=== PATIENT | female | born 1950 | race Caucasian/White ===

== ENCOUNTER 2020-07-13 08:31 | Outpatient (REF) | payer MEDICARE, SELFPAY ==
[2020-07-13 09:09] LABS: MANUAL DIFF FLAG NO
[2020-07-13 09:18] LABS: Basophils Percent Auto 0.7 % (0-2); Eosinophils Absolute Auto 0.2 X10*3/uL (0.0-0.4); Eosinophils Percent Auto 2.8 % (0-4); Hematocrit 39.8 % (37-47); Hemoglobin 13.3 g/dl (12.0-16.0); Imm Gran Abs Auto 0.02 X10*3/uL (0.00-0.03); Imm Gran Pct Auto 0.3 % (0.0-0.4); Lymphocytes Absolute Auto 2.1 X10*3/uL (1.2-4.9); Mean Corpuscular HGB Conc 33.4 g/dl (31.0-35.0); Mean Corpuscular Hemoglobin 32.3 pg (27.0-33.0); Mean Corpuscular Volume 96.6 fL (80-98); Mean Platelet Volume 9.3 fL (9.4-12.3); Monocytes Absolute Auto 0.5 X10*3/uL (0.1-1.2); Monocytes Percent Auto 8.8 % (2-11); Neutrophils Absolute Auto 3.2 X10*3/uL (2.0-8.3); Neutrophils Percent Auto 52.4 % (45-73); Platelet Count 255 X10*3/uL (160-400); Red Blood Count 4.12 X10*6/uL (4.20-5.50); Red Cell Distribution Width 11.5 % (11.0-16.0); White Blood Count 6.1 X10*3/uL (4.8-10.8)
[2020-07-13 10:06] LABS: Alanine Aminotransferase 45 U/L (0-31); Alkaline Phosphatase 97 U/L (39-117); Anion Gap 14 (12-20); Aspartate Amino Transferase 35 U/L (5-31); Bilirubin Total 0.5 mg/dL (0.0-1.0); Blood Urea Nitrogen 10 mg/dL (9-16); Carbon Dioxide 28 mmol/L (22-29); Chloride 99 mmol/L (96-108); Cholesterol 189 mg/dL; Estimated Glomerular Filt Rate > 60; Glucose Fasting 104 mg/dL (60-99); HDL Cholesterol 58 mg/dL; LDL Cholesterol Calculated 97 mg/dl; Potassium 4.7 mmol/l (3.3-5.1); Sodium 136 mmol/L (135-145); Total Protein 7.3 g/dL (6.5-8.0); Triglycerides 172 mg/dL
[2020-07-13 10:28] LABS: Vitamin D 25-OH Total 51.8 ng/mL (>30)
== END 2020-07-13 08:32 | disposition home or self-care (01) ==
LOC: HO.10HDL 08:31
PROVIDERS: PCP Internal Medicine; Visit Provider Internal Medicine
DX: I10 Essential (primary) hypertension (principal); E78.00 Pure hypercholesterolemia, unspecified
CPT/HCPCS: 36415; 80053; 80061; 82306; 85025

== ENCOUNTER 2020-07-17 10:25 | Outpatient (REF) | payer MEDICARE, SELFPAY ==
--- NOTE | 2020-07-17 10:29 | MM_ITS ---
EXAMINATION: MM SCREENING DIGITAL BREAST TOMOSYNTHESIS, BILATERAL CLINICAL INFORMATION: Screening. Asymptomatic. The lifetime risk of breast cancer based on the Tyrer-Cuzick Model is 4%. COMPARISON: Mammography: 07/12/2019, 07/06/2018 TECHNIQUE: Digital breast tomosynthesis is performed in both the craniocaudal and mediolateral oblique views along with computer-aided detection (CAD). Synthesized 2D images are generated from the tomosynthesis. FINDINGS: There are scattered areas of fibroglandular density (ACR BI-RADS breast composition Category b). Breast tissue composition borders on predominantly fatty. There are dermal lesions again seen overlying the bilateral breasts. There is no interval breast parenchymal mass or architectural abnormality or abnormal calcifications. The axilla are unremarkable. No significant changes. MM/MM tomosynthesis screening BI IMPRESSION: No mammographic evidence of malignancy. ASSESSMENT: BI-RADS 2: Benign RECOMMENDATION: Routine annual mammography screening. This patient's information was entered into a reminder system with a target due date for their next mammogram.
== END 2020-07-17 10:26 | disposition home or self-care (01) ==
LOC: HO.MAMMO 10:25
PROVIDERS: PCP Internal Medicine; Visit Provider Internal Medicine
DX: Z12.31 Encounter for screening mammogram for malignant neoplasm of breast (principal)
CPT/HCPCS: 77063; 77067

== ENCOUNTER 2021-07-25 13:56 | Outpatient (REF) | payer MEDICARE, SELFPAY ==
--- NOTE | ~2021-07-25 | MM_ITS ---
EXAMINATION: MM SCREENING DIGITAL BREAST TOMOSYNTHESIS, BILATERAL CLINICAL INFORMATION: Screening. Asymptomatic. The lifetime risk of breast cancer based on the Tyrer-Cuzick Model is 4%. COMPARISON: Mammography: 08/17/2020, 07/12/2019, 07/06/2018 TECHNIQUE: Digital breast tomosynthesis is performed in both the craniocaudal and mediolateral oblique views along with computer-aided detection (CAD). Synthesized 2D images are generated from the tomosynthesis. Additional right CC view is provided. FINDINGS: There are scattered areas of fibroglandular density (ACR BI-RADS breast composition Category b). There are no significant masses, abnormal calcifications, or other abnormalities. There are scattered bilateral dermal lesions overlying the breasts. The axilla are unremarkable. No significant changes. MM/MM tomosynthesis screening BI IMPRESSION: No mammographic evidence of malignancy. ASSESSMENT: BI-RADS 2: Benign RECOMMENDATION: Routine annual mammography screening. This patient's information was entered into a reminder system with a target due date for their next mammogram.
== END 2021-07-25 13:57 | disposition home or self-care (01) ==
LOC: HO.MAMMO 13:56
PROVIDERS: PCP Internal Medicine; Visit Provider Internal Medicine
DX: Z12.31 Encounter for screening mammogram for malignant neoplasm of breast (principal)
CPT/HCPCS: 77063; 77067

== ENCOUNTER 2022-07-31 10:29 | Outpatient (REF) | payer MEDICARE, SELFPAY ==
--- NOTE | ~2022-07-31 | MM_ITS ---
EXAMINATION: MM SCREENING DIGITAL BREAST TOMOSYNTHESIS, BILATERAL CLINICAL INFORMATION: Screening. Asymptomatic. The lifetime risk of breast cancer based on the Tyrer-Cuzick Model is 4%. COMPARISON: Mammography: 07/25/2021, 07/17/2020, 07/12/2019 TECHNIQUE: Digital breast tomosynthesis is performed in both the craniocaudal and mediolateral oblique views along with computer-aided detection (CAD). Synthesized 2D images are generated from the tomosynthesis. FINDINGS: There are scattered areas of fibroglandular density (ACR BI-RADS breast composition Category b). Breast tissue composition borders on predominantly fatty. There are no significant masses, abnormal calcifications, or other abnormalities. There is no developing density or architectural abnormality. Scattered bilateral dermal lesions are again seen overlying both breasts. The axilla are unremarkable. No significant changes. MM/MM tomosynthesis screening BI IMPRESSION: No mammographic evidence of malignancy. ASSESSMENT: BI-RADS 2: Benign RECOMMENDATION: Routine annual mammography screening. This patient's information was entered into a reminder system with a target due date for their next mammogram.
== END 2022-07-31 10:30 | disposition home or self-care (01) ==
LOC: HO.MAMMO 10:29
PROVIDERS: PCP Internal Medicine; Visit Provider Internal Medicine
DX: Z12.31 Encounter for screening mammogram for malignant neoplasm of breast (principal)
CPT/HCPCS: 77063; 77067

== ENCOUNTER 2023-08-02 08:11 | Outpatient (REF) | payer MEDICARE, SELFPAY | END 2023-08-02 08:12 | disposition home or self-care (01) | LOC: HO.MAMMO 08:11 | PROVIDERS: PCP Internal Medicine; Visit Provider Internal Medicine | DX: Z12.31 Encounter for screening mammogram for malignant neoplasm of breast (principal) | CPT/HCPCS: 77063; 77067 ==

== ENCOUNTER → 2023-08-02 08:30 | Outpatient (BNV) | payer MEDICARE, SELFPAY | PROVIDERS: PCP Internal Medicine; Visit Provider Radiology Diagnostic Radiology | DX: Z12.31 Encounter for screening mammogram for malignant neoplasm of breast (principal) | CPT/HCPCS: 77063; 77067 ==

== ENCOUNTER 2023-10-02 08:31 | Outpatient (REF) | payer MEDICARE, SELFPAY ==
--- NOTE | ~2023-10-02 | MM_ITS ---
EXAMINATION: BONE DENSITOMETRY CLINICAL INDICATION: Other specified disorders of bone density and structure, multiple sites. COMPARISON: Previous BD dated 09/23/2019 and baseline BD dated 07/31/2014. TECHNIQUE: Using a [employer] DXA System (software version: 13.1) manufactured by [employer], dual-energy x-ray absorptiometry was performed of the lumbar spine and left hip. The images are of good technical quality. Summary results are attached. FINDINGS: AP SPINE L1-L4 (excluding L2): The data of L1-L4 has been changed to exclude the L2 vertebral body, because degenerative sclerosis at this level may cause overestimation of lumbar spine density. Current: BMD 0.875 g/cm2, Z-score -0.9, T-score -2.5, osteoporosis, 11.4% decrease from previous, 12.6% decrease from baseline (<5% change is not significant). Prior: BMD 0.988 g/cm2. Baseline: BMD 1.001 g/cm2. LEFT FEMUR, NECK: Current: BMD 0.658 g/cm2, Z-score -1.0, T-score -2.7, osteoporosis. Prior: BMD 0.786 g/cm2. Baseline: BMD 0.810 g/cm2. LEFT FEMUR, TOTAL: Current: BMD 0.618 g/cm2, Z-score -1.6, T-score -3.1, osteoporosis, 19.5% decrease from previous, 21.3% decrease from baseline (<5% change is not significant). Prior: BMD 0.768 g/cm2. Baseline: BMD 0.785 g/cm2. IDENTIFIED RISK FACTORS: Low calcium intake. Secondary osteoporosis (early menopause). Hysterectomy. Bilateral oophorectomy. Thiazide. HISTORY OF FRACTURE: None listed. MEDICATIONS: Calcium supplement and/or multivitamin. MM/XR DEXA axial skeleton IMPRESSION: 1. DIAGNOSIS: Osteoporosis based on the lowest T-score value of -3.1 in the total femur applying World Health Organization criteria. 2. 10-YEAR FRACTURE RISK PREDICTION, FRAX: According to the guidelines, FRAX calculation should only be performed on patients in the osteopenia bone density category.?Therefore, FRAX was not performed on this patient.? 3. Treatment Recommendations: NOF guidelines recommend consideration for treatment in postmenopausal women and men age 50 and older presenting with the following: -A hip or vertebral (clinical or morphometric) fracture. -T-score less than or equal to -2.5 at the femoral neck or spine after appropriate evaluation to exclude secondary causes. -Low bone mass at the hip or spine and a 10-year fracture probability by FRAX of greater than or equal to 3% for hip fracture or greater than or equal to 20% for major osteoporotic fracture based on the [place] adapted WHO algorithm. 4. Other Recommendations: All treatment decisions require clinical judgment and consideration of individual patient factors, including patient preferences, comorbidities, previous drug use, risk factors not captured in the FRAX model (e.g. frailty, falls, vitamin D deficiency, increased bone turnover, interval significant decline in bone density) and possible under or overestimation of fracture risk by FRAX. Additional medical evaluation for secondary cause of low bone mineral density may be appropriate. FUTURE SCAN RECOMMENDATION: People with diagnosed cases of osteoporosis or at high risk for fracture should have regular bone mineral density tests. For patients eligible for Medicare, routine testing is allowed once every 2 years. The testing frequency can be increased to one year for patients who have rapidly progressing disease, those who are receiving or discontinuing medical therapy to restore bone mass, or have additional risk factors.
== END 2023-10-02 08:32 | disposition home or self-care (01) ==
LOC: HO.MAMMO 08:31
PROVIDERS: Visit Provider Internal Medicine
DX: Z13.820 Encounter for screening for osteoporosis (principal); M85.89 Other specified disorders of bone density and structure, multiple sites; Z78.0 Asymptomatic menopausal state
CPT/HCPCS: 77080

== ENCOUNTER 2023-12-08 07:42 | Outpatient (REF) | payer MEDICARE, SELFPAY ==
[2023-12-08 07:55] LABS: MANUAL DIFF FLAG NO
[2023-12-08 08:41] LABS: Basophils Absolute Auto 0.1 X10*3/uL (0.0-0.2); Basophils Percent Auto 0.8 % (0-2); Eosinophils Absolute Auto 0.2 X10*3/uL (0.0-0.4); Eosinophils Percent Auto 3.3 % (0-4); Hematocrit 36.1 % (37.0-47.0); Hemoglobin 12.7 g/dl (12.0-16.0); Imm Gran Abs Auto 0.03 X10*3/uL (0.00-0.03); Imm Gran Pct Auto 0.5 % (0.0-0.4); Lymphocytes Absolute Auto 2.3 X10*3/uL (1.2-4.9); Lymphocytes Percent Auto 36.6 % (20-40); Mean Corpuscular HGB Conc 35.2 g/dl (31.0-35.0); Mean Corpuscular Hemoglobin 33.1 pg (27.0-33.0); Monocytes Absolute Auto 0.6 X10*3/uL (0.1-1.2); Monocytes Percent Auto 8.7 % (2-11); Neutrophils Absolute Auto 3.2 x10*3/uL (2.0-8.3); Neutrophils Percent Auto 50.1 % (45-73); Platelet Count 259 X10*3/uL (160-400); Red Blood Count 3.84 X10*6/uL (4.20-5.50); Red Cell Distribution Width 11.8 % (11.0-16.0); White Blood Count 6.3 X10*3/uL (4.8-10.8)
[2023-12-08 09:26] LABS: Alanine Aminotransferase 22 U/L (0-31); Albumin Level 3.9 g/dL (3.5-5.0); Alkaline Phosphatase 80 U/L (39-117); Anion Gap 14 (12-20); Aspartate Amino Transferase 28 U/L (5-31); Bilirubin Total 0.4 mg/dL (0.0-1.0); Blood Urea Nitrogen 9 mg/dL (9-16); Calcium 9.3 mg/dL (8.4-10.2); Carbon Dioxide 27 mmol/L (22-29); Chloride 96 mmol/L (96-108); Cholesterol 183 mg/dL (<200); Estimated Glomerular Filt Rate > 60; Glucose Fasting 95 mg/dL (60-99); HDL Cholesterol 59 mg/dL (>40); LDL Cholesterol Calculated 85 mg/dL (<100); Sodium 133 mmol/L (135-145); Total Protein 7.5 g/dL (6.5-8.0); Triglycerides 197 mg/dL (<150)
[2023-12-08 09:41] LABS: Vitamin D 25-OH Total 50.4 ng/mL (>30)
== END 2023-12-08 07:43 | disposition home or self-care (01) ==
LOC: HO.LAB 07:42
PROVIDERS: PCP Internal Medicine; Visit Provider Internal Medicine
DX: I10 Essential (primary) hypertension (principal); E78.00 Pure hypercholesterolemia, unspecified; M85.80 Other specified disorders of bone density and structure, unspecified site
CPT/HCPCS: 36415; 80053; 80061; 82306; 85025

== ENCOUNTER 2024-01-01 14:48 | Outpatient (REF) | payer MEDICARE, SELFPAY ==
[2024-01-01 15:12] LABS: MANUAL DIFF FLAG NO
[2024-01-01 15:49] LABS: Basophils Percent Auto 0.4 % (0-2); Eosinophils Percent Auto 0.2 % (0-4); Hematocrit 34.9 % (37.0-47.0); Hemoglobin 12.4 g/dl (12.0-16.0); Imm Gran Abs Auto 0.03 X10*3/uL (0.00-0.03); Imm Gran Pct Auto 0.3 % (0.0-0.4); Lymphocytes Absolute Auto 1.4 X10*3/uL (1.2-4.9); Lymphocytes Percent Auto 15.1 % (20-40); Mean Corpuscular HGB Conc 35.5 g/dl (31.0-35.0); Mean Corpuscular Hemoglobin 33.2 pg (27.0-33.0); Mean Corpuscular Volume 93.6 fL (80.0-98.0); Mean Platelet Volume 9.1 fL (9.4-12.3); Monocytes Absolute Auto 0.9 X10*3/uL (0.1-1.2); Monocytes Percent Auto 10.3 % (2-11); Neutrophils Absolute Auto 6.6 x10*3/uL (2.0-8.3); Neutrophils Percent Auto 73.7 % (45-73); Platelet Count 243 X10*3/uL (160-400); Red Blood Count 3.73 X10*6/uL (4.20-5.50); Red Cell Distribution Width 11.8 % (11.0-16.0); White Blood Count 8.9 X10*3/uL (4.8-10.8)
[2024-01-01 16:33] LABS: C Reactive Protein 3.71 mg/dL (< or = 0.50)
[2024-01-02 18:03] LABS: Lyme Abs Screen <0.90 index
== END 2024-01-01 14:49 | disposition home or self-care (01) ==
LOC: HO.LAB 14:48
PROVIDERS: PCP Internal Medicine; Visit Provider Internal Medicine
DX: T14.8XXA Other injury of unspecified body region, initial encounter (principal); W57.XXXA Bitten or stung by nonvenomous insect and other nonvenomous arthropods, initial encounter; L95.9 Vasculitis limited to the skin, unspecified
CPT/HCPCS: 36415; 85025; 86140; 86617; 86618

== ENCOUNTER 2024-09-18 09:16 | Outpatient (REF) | payer MEDICARE, SELFPAY ==
--- OUTSIDE RECORDS SUMMARY | 2024-09-18 10:19 | XMS_ITS | Patient Health Record ---
Author Organization [facility] Address [address] [place] [address] Care Team Providers Care Automobile Lights Assembler Name Role Phone Lonnie Mesa MD Primary Care Provider Judd Fernandez Unavailable [phone] Allergies No Known Allergies Reason For Referral No Information Medications Medication SIG (Take, Route, Fr equency, Duration) Notes Start Date End Date Status Avalide 150-12.5 MG 1 tablet Orally Once a day Active Calcium 1 tab Oral for 14 days Active Multivitamin Adults - as directed Orally Active Simvastatin 10 MG 1 tablet in the even ing Orally Once a day Active Atenolol 50 MG 1 tablet Orally Once a day for 30 day(s) Active Immunizations Vaccine Route Administration Date Status Comme nts Influenza Unknown 03/16/2018 Administered Problems Problem Type SNOMED Code ICD Code Onset Dates Problem Status W/U Status Risk Notes Problem 220478253 Encounter for screening for malignant neoplasm of colon (Z12.11) Active confirmed Problem 405163470 History of adenomatous polyp of colon (Z86.010) Active confirmed Problem [id number] Pre-procedural examination (Z01.818) Active confirmed Vital Signs Blood pressure diastolic 00 mm Hg 08/14/2024 Height 65.5 in 08/14/2024 Blood pressure systolic 00 mm Hg 08/14/2024 Weight 153 lbs 08/14/2024 BMI 25.07 kg/m2 08/14/2024 Encounters Encounter Location Date Provider Diagnosis [facility] [address] [place] [address] 08/14/2024 Judd Sharif History of adenomato us polyp of colon Z86.010 ; Encounter for screening for malignant neoplasm of colon Z12.11 and Pre-procedural examination Z01.818 [facility] [address] [place] [address] 08/13/2024 Judd Sharif Assessments Encounter Date Diagnosis (ICD Code) Assessment Notes Treatment Notes Treatment Clinical Notes Section Notes 08/14/2024 Encounter for screening for malignant neoplasm of colon (ICD-10 - Z12.11) Overall, Corinna appears quite well. Given her age, good clinical appearance, personal history of tubular adenomas of the colon, and last colonoscopy over 5 years ago, I did recommend a followup colonoscopy for further screening purposes. We did review the rationale for that regard to colon cancer prevention. Full consent was obtained for this, including risks of bleeding and perforation. The procedure will be done with monitored anesthesia care. Corinna was comfortable with this plan. Thank you again for allowing me to participate in Corinna's care. I shall continue to keep you advised of her progress. 08/14/2024 History of adenomatous polyp of colon (ICD-10 - Z86.010) Overall, Corinna appears quite well. Given her age, good clinical appearance, personal history of tubular adenomas of the colon, and last colonoscopy over 5 years ago, I did recommend a followup colonoscopy for further screening purposes. We did review the rationale for that regard to colon cancer prevention. Full consent was obtained for this, including risks of bleeding and perforation. The procedure will be done with monitored anesthesia care. Corinna was comfortable with this plan. Thank you again for allowing me to participate in Corinna's care. I shall continue to keep you advised of her progress. 08/14/2024 Pre-procedural examination (ICD-10 - Z01.818) Overall, Corinna appears quite well. Given her age, good clinical appearance, personal history of tubular adenomas of the colon, and last colonoscopy over 5 years ago, I did recommend a followup colonoscopy for further screening purposes. We did review the rationale for that regard to colon cancer prevention. Full consent was obtained for this, including risks of bleeding and perforation. The procedure will be done with monitored anesthesia care. Corinna was comfortable with this plan. Thank you again for allowing me to participate in Corinna's care. I shall continue to keep you advised of her progress. Plan Of Treatment Future Test Test Name Order Date COLONOSCOPY 11/06/2013 COLONOSCOPY 04/15/2019 COLONOSCOPY 08/14/2024 Next Appt Details Provider Name:Judd Sharif , 11/26/2024 08:30:00 AM, [address] [facility] [facility] , [place], [place], [phone], Insurance Providers Payer Name Payer Address Payer Phone Subscriber Number Group Number Insured Name Patient Relationship to Insured Coverage Start Date Coverage End Date MEDICARE OF [place] [address] [place] [address] [id number] JOHANNE COBOS Self - patient is the insured 6 MEDEX ATTN CLAIMS [address] [place] [address] [phone] [id number] JOHANNE COBOS Self - patient is the insured Medical (General) History Medical History History ICD Code Tubular adenomas removed in September 2004 and May of 2008; neg colonoscopy in 01/2014 Hypertension Hyperlipidemia Denies [place], DM, CVA, Lung disease, renal disease Screening colonoscopy in May 9 with removal of a tubular adenoma Surgical History Surgery Date(Month/Year) total hysterectomy 07/1997 left ovary removed 1979 or 1980 wisdom teeth extraction appendix
--- OUTSIDE RECORDS SUMMARY | 2024-09-18 10:19 | XMS_ITS ---
Author Organization [facility] Address [address] [place] [address] Care Team Providers Care Medical Geneticist Name Role Phone Lonnie Mesa MD Primary Care Provider Judd Fernandez [phone] REASON FOR VISIT Update Demographics - Personal Info Encounters Encounter Location Date Provider Diagnosis [facility] [address] [place] [address] 08/13/2024 Judd Sharif Plan Of Treatment Next Appt Details Provider Name:Judd Sharif , 11/26/2024 08:30:00 AM, [address] [place] [address] , [place], [place], [phone], Progress Notes * JOHANNE COBOS SDOB:1949 (74 yo F)Acc No.[id number]:08/13/2024 Patient:?JOHANNE COBOS :1950???Age:74 Y???Sex:Female Address:[address] [place] [address] * true * Date:? Generated for Printi eric/Florence/eTransmitting on:?09/18/2024 10:19 AM EST
--- OUTSIDE RECORDS SUMMARY | 2024-09-18 10:19 | XMS_ITS ---
Author Organization [facility] Address [address] [place] [address] Care Team Providers Care Blade Operator Name Role Phone Lonnie Mesa MD Primary Care Provider Judd Fernandez Unavailable [phone] Allergies No Known Allergies REASON FOR VISIT Patient presents today for a colon screening Medications Medication SIG (Take, Route, Fr equency, [...] Once a day for 30 day(s) Active Vital Signs Blood pressure systolic 00 mm Hg 08/14/19 25 Blood pressure diastolic 00 mm Hg 025 Height 65.5 in 08/14/2024 Weight 153 lbs 08/14/2024 BMI 25.07 kg/m2 08/14/2024 Encounters Encounter Location Date Provider Diagnosis [facility] [address] [place] [address] 08/14/2024 Judd Sharif History of adenomato us polyp of colon Z86.010 ; Encounter for screening for malignant neoplasm of colon Z12.11 and Pre-procedural examination Z01.818 Assessments Encounter Date Diagnosis (ICD Code) Assessment Notes Treatment Notes Treatment Clinical Notes Section Notes 08/14/2024 History of adenomatous polyp of colon [...] keep you advised of her progress. 08/14/2024 Encounter for screening for malignant neoplasm [...] Future Test Test Name Order Date COLONOSCOPY 08/14/2024 Next Appt Details Follow Up: prn, Reason: Provider Name:Judd Sharif , 11/26/2024 08:30:00 AM, [address] [place] [address] , [place], [place], [phone], Progress Notes * JOHANNE COBOS SDOB:1949 (74 yo F)Acc No.[id number]:08/14/2024 Progress Notes Patient:?JOHANNE COBOS S Provider:?Judd Sharif MD :1950???Age:74 Y???Sex:Female D ate:08/14/2024 Address:[address] [place], [place] Pcp:Lonnie Mesa MD Subjective: * Chief Complaints: * ???Patient presents today fo r a colon screening * HPI: ???incontinence:? I saw Corinna In the office today for evaluation of her personal history of tubular adenomas of the colon and need for colorectal cancer screening. ?I last saw Corinna in May 2019, at which time she underwent a followup screening colonoscopy with removal of a tubular adenoma. She presently feels well. She enjoys a good appetite, without any significant heartburn or dysphagia. Her bowel movements have been regular and without any signs of bleeding. She denies abdominal pain, jaundice, nor unintentional weight loss. She denies any known family history of colorectal cancer. * ROS:?General/Constitutional:?Change in appetite?denies.?Chills?denies.?Fatigue?denies.?Ophthalmologic:?Comments?all negative.?ENT:?Comments?all negative.?Respiratory:?hemoptysis?denies.?Cough?denies.?Cardiovascular:?Chest pain?denies.?Orthopnea?denies.?Gastrointestinal:?Comments?See HPI for details.?Genitourinary:?Hematuria?denies.?Dysuria?denies.?Musculoskeletal:?Painful joints?denies.?Weakness?denies.?Skin:?Itching?denies.?Rash?denies.?Neurologic:?Headache?denies.?Seizures?denies.?Psychiatric:?Comments?all negative.? * Medical History:? * Surgical History:? total hys terectomy 07/1997 left ovary removed 1979 or 1980 wisdom teeth extraction appendix * Hospitalization/Major Diagno stic Procedure:?No Hospitalization History. * Family History:?Father: dece ased.?Mother: .? Patient denies any family history of colon cancer nor inflammatory bowel disease. * Social History:?Tobacco Use:?Tobacco Use/Smoking?Are you a: nonsmoker.?Drugs/Alcohol:?Drugs?Have you used drugs other than those for medical reasons in the past 12 months??No.?Alcohol Screen?Points: 4, Interpretation: Positive.?Miscellaneous:?Marital status: . 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 ???Nonsmoker; 2 glasses of wine QD. * Medications:?TakingAvalide 1 50-12.5 MG Tablet 1 tablet Orally Once a daySimvastatin 10 MG Tablet 1 tablet in the evening Orally Once a dayAtenolol 50 MG Tablet 1 tablet Orally Once a dayCalcium 1 tab Oral Multivitamin Adults - Tablet as directed Orally Medication List reviewed and reconciled with the patientTaking Avalide 150-12.5 MG Tablet 1 tablet Orally Once a dayTaking Simvastatin 10 MG Tablet 1 tablet in the evening Orally Once a dayTaking Atenolol 50 MG Tablet 1 tablet Orally Once a dayTaking Calcium 1 tab Oral Taking Multivitamin Adults - Tablet as directed Orally Medication List reviewed and reconciled with the patient * Allergies:?N.K.D.A.yes[Aller gies Verified] Objective: * Vitals:?Wt: 153 lbs, Ht: 65. 5 in, BMI:25.07 Index, BP: 00/00 mm Hg. * Examination: ???General Examination: ?GENERAL APPEARANCE:?pleasant, well nourished, well developed, in no acute distress.?EYES:?sclera non-icteric.?ORAL CAVITY:?mucosa moist.?NECK/THYROID:?no cervical lymphadenopathy, neck supple.?SKIN:?nonjaundiced, no spider angiomata.?HEART:?S1, S2 normal.?LUNGS:?clear to auscultation bilaterally.?ABDOMEN:?normal bowel sounds, no guarding or rigidity, no guarding or rigidity, no masses palpable, soft, nontender, nondistended.?EXTREMITIES:?no edema.?NEUROLOGIC:?alert and oriented.? Assessment: * Assessment: 1.?Encounter for screening f or malignant neoplasm of colon - Z12.11 (Primary)?2.?History of adenomatous polyp of colon - Z86.010?3.?Pre-procedural examination - Z01.818? Overall, Corinna appears quite well. Given her [...] to keep you advised of her progress. Plan: * Treatment: 2.?History of adenomatous polyp of colon?Procedure: COLONOSCOPY (Ordered for 08/14/2024)* with MACsched for 11/26/24 at 8:30 ammiralax * Procedure Codes:? * Preventive Medicine:? ??Urinary Incontinence:?Urinary Incontinence?Assessment:?Absent,?Plan of care documented:?No, reason not specified.? ??Screenings:?Fall Risk Screening?Fall Risk Assessment:?No falls in the past year,?Screening:?No falls in the past year,?Assessment:?Not performed, no reason specified,?Plan of Care:?Not documented, no reason specified.?. * Follow Up:?prn * * Sign off status: Completed true * Provider:?Judd Sharif MD Date:? 025 Generated for Adan reyes/Florence/Andreitting on:?09/18/2024 10:18 AM EST History and Physical Notes * HPI (History of Present Illness) Category Sub-Category Detail Notes Category Not es incontinence I saw Corinna In the office today for evaluation of her personal history of tubular adenomas of the colon and need for colorectal cancer screening. I last saw Corinna in May 2019, at which time she underwent a followup screening colonoscopy with removal of a tubular adenoma. She presently feels well. She enjoys a good appetite, without any significant heartburn or dysphagia. Her bowel movements have been regular and without any signs of bleeding. She denies abdominal pain, jaundice, nor unintentional weight loss. She denies any known family history of colorectal cancer. Examination Category Sub-Category Detail Notes Category Not es General Examination GENERAL APPEARANCE: pleasant , well nourished, well developed, in no acute distress HEAD: EYES: sclera non-icteric EARS: NOSE: THROAT: NECK/THYROID: no cervical lymphade nopathy, neck supple HEART: S1, S2 normal CHEST: LUNGS: clear to auscultatio n bilaterally ABDOMEN: normal bowel sounds, no guarding or rigidity, no guarding or rigidity, no masses palpable, soft, nontender, nondistended NEUROLOGIC: alert and oriented SKIN: nonjaundiced, no spi mariano angiomata EXTREMITIES: no edema PERIPHERAL PULSES: BACK: BREASTS: MUSCULOSKELETAL: MALE GENITOURINARY: LYMPH NODES: RECTAL EXAM: FEMALE GENITOURINARY: ORAL CAVITY: mucosa moist
== END 2024-09-18 09:17 | disposition home or self-care (01) ==
LOC: HO.MAMMO 09:16
PROVIDERS: PCP Internal Medicine; Visit Provider Internal Medicine
DX: Z12.31 Encounter for screening mammogram for malignant neoplasm of breast (principal)
CPT/HCPCS: 77063; 77067

== ENCOUNTER → 2024-09-18 09:30 | Outpatient (BNV) | payer MEDICARE, SELFPAY | PROVIDERS: PCP Internal Medicine; Visit Provider Internal Medicine | DX: Z12.31 Encounter for screening mammogram for malignant neoplasm of breast (principal) | CPT/HCPCS: 77063; 77067 ==

== ENCOUNTER 2024-11-24 12:42 | Outpatient (AMB) | payer MEDICARE, SELFPAY ==
--- NOTE | 2024-11-24 12:58 | AM.OFFWIN_ITS ---
Intake Vital Signs 11/24/24 13:02 Weight 152 lb BP 140/80 H Blood Pressure Location Rt brachial Position Sitting Pulse 68 Pulse Source Pulse Oximeter Pulse Oximetry (%) 94 Oxygen Delivery Method Room Air Intake Visit Reasons: EP-rt tight tick bite Intake Note: Patient here fight thigh tick bite that she noticed today. Patient Tobacco Use Status: Never used Tobacco Allergies No Known Allergies Allergy (Verified 11/24/24 13:10) Do you need a note to return to daycare/school/sports/work: No HPI HPI Comments History of Present Illness Details History of Present Illness - The patient is a 74-year-old female pr esenting with a tick bite. - She discovered the tick this morning a few hours prior to the visit, and it was still attached. - She believes the bite occurred around a day and a half ago while she was outside in a brushy area behind her home. - The patient reports seeing the beginni ng of a bull's-eye rash. She has experienced this type of bite previously, about a year ago. - No fever or joint pain at the time of evaluation. Physical Exam General: Cooperative, healthy appearing, comfortable, no acute distress and well developed Orientation: Patient oriented x3 Limitations: No limitations Head: Normal to inspection Ears: Hearing grossly normal bilaterally Nose: Normal External nose present Face and sinus: Normal facial exam Eyes: Appearance normal, both eyes and all related structures Neck: Normal visual inspection and Yes full ROM Respiratory: Normal respiratory effort and able to speak in complete sentences. Skin: No rashes or lesions noted, right lateral hip 0.5cm circular area of erythema with central dark spot, no TTP, no warmth, no drainage, no TTP. Neuro: Patient oriented x3 Extremities: Normal to inspection [facility] Medical History (Updated 11/24/24 @ 13:39 by Katerina Strauss PA-C) HTN (hypertension) Hyperlipidemia Surgical History (Updated 11/24/24 @ 08:26 by Lupe Urena RN) H/O colonoscopy H/O wisdom tooth extraction Hx of appendectomy Hx of total hysterectomy Social History (System 10/10/24 @ 13:05 by Katerina Childress) Patient Tobacco Use Status: Never used Tobacco Review of Systems Const All systems reviewed & are unremarkable except as noted in HPI and below Physical Exam Vital Signs: Last Vital Signs Pulse 68 11/24/24 13:02 BP 140/80 H 11/24/24 13:02 Pulse Ox 94 11/24/24 13:02 Oxygen Delivery Method Room Air 11/24/24 13:02 Assessment & Plan Assessment & Plan (1) Tick bite: Code(s): W57.XXXA - Bitten or stung by nonvenomous insect and other nonvenomous arthropods, initial encounter Qualifiers: Encounter type: initial encounter Site of tick bite: hip Laterality: right Qualified Code(s): S70.261A - Insect bite (nonvenomous), right hip, initial encounter; W57.XXXA - Bitten or stung by nonvenomous insect and other nonvenomous arthropods, initial encounter Plan: Prophylactic antibiotic therapy was prescribed to address the recent tick bite, no fever, joint pain or bulls eye rash on exam. A single 200 mg dose of doxycycline, to be taken tonight, will serve as the prophylactic measure because the tick's attachment duration was within 36 hours, and presentation was subse quent to that within 72 hours. Dairy intake should be limited to minimize gastrointestinal side effects. The patient should observe for systemic symptoms, including fever, joint pain or bulls eye rash, which would necessitate further assessment and potentially an extended antibiotic course. Updates have been sent to her selected pharmacy for her convenience. Despite an upcoming colonoscopy, this regimen should remain non-interfering. Patient was informed and verbally consented to the use of an ambient scribe for clinic note documentation during this visit. Medications: New doxycycline hyclate 200 mg (2 x 100 mg) PO once PRN 2 tabs 0RF tick bite ppx Coding Level of Care Code Est Pt Level 3 (24428) Diagnoses Tick bite of right hip, initial encounter S70.261A; W57.XXXA Encounter type: initial encounter Site of tick bite: hip Laterality: right
[2024-11-24 13:02] VITALS: BP 140/80; PULSE 68; O2SAT 94
--- OUTSIDE RECORDS SUMMARY | 2024-11-24 13:02 | XMS_ITS ---
Author Organization [facility] Address [address] [place] [address] Care Team Providers Care Diplomatic Courier Name Role Phone Lonnie Mesa MD Primary Care Provider Judd Fernandez [phone] REASON FOR VISIT Update Demographics - Personal Info Encounters Encounter Location Date Provider Diagnosis [facility] [address] [place] [address] 08/13/2024 Judd Sharif Plan Of Treatment Next Appt Details Provider Name:Judd Sharif , 11/26/2024 08:30:00 AM, [address] [place] [address] , [place], [place], [phone], Progress Notes * JOHANNE COBOS SDOB:1949 (74 yo F)Acc No.[id number]:08/13/2024 Patient:?JOHANNE COBOS :1950???Age:74 Y???Sex:Female Address:[address] [place] [address] * true * Date:? Generated for Printi ng/Fakrishnag/eTransmitting on:?11/24/2024 01:01 PM EDT
--- OUTSIDE RECORDS SUMMARY | 2024-11-24 13:02 | XMS_ITS ---
Author Organization [facility] Address [address] [place] [address] Care Team Providers Care Airport Sales Agent Name Role Phone Lonnie Mesa MD Primary Care Provider Judd Fernandez Unavailable [phone] Allergies No Known Allergies REASON FOR VISIT [...] 08/14/2024 Encounters Encounter Location Date Provider Diagnosis [facility] [address] [place] [address] 08/14/2024 Judd Sharif History of adenomato us [...] Name:Judd Sharif , 11/26/2024 08:30:00 AM, [address] [place] [address] , [place], [place], [phone], Progress Notes * JOHANNE COBOS SDOB:1949 (74 yo F)Acc No.[id number]:08/14/2024 Progress Notes Patient:?JOHANNE COBOS S Provider:?Judd Sharif MD :1950???Age:74 Y???Sex:Female D ate:08/14/2024 Address:[address] [place], [place] Pcp:Lonnie Mesa MD Subjective: * Chief Complaints: [...] Positive.?Miscellaneous:?Marital status: . 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 ???Nonsmoker; 2 glasses of wine QD. [...] MD Date:? 025 Generated for Adan reyes/Florence/Andreitting on:?11/24/2024 01:01 PM EDT History and Physical Notes * HPI (History [...]
--- OUTSIDE RECORDS SUMMARY | 2024-11-24 13:02 | XMS_ITS | Patient Health Record ---
Author Organization [facility] Address [address] [place] [address] Care Team Providers Care Lathe Set Up Operator Name Role Phone Lonnie Mesa MD Primary Care Provider Judd Fernandez Unavailable [phone] Allergies No Known Allergies Reason For Referral [...] Problem Status W/U Status Risk Notes Problem [id number] Encounter for screening for malignant neoplasm of colon (Z12.11) Active confirmed Problem 106310884 History of adenomatous polyp of colon (Z86.010) Active confirmed Problem [id number] Pre-procedural examination (Z01.818) Active confirmed Vital Signs Blood pressure diastolic 00 mm Hg 08/14/2024 Height 65.5 in 08/14/2024 Blood pressure systolic 00 mm Hg 08/14/2024 Weight 153 lbs 08/14/2024 BMI 25.07 kg/m2 08/14/2024 Encounters Encounter Location Date Provider Diagnosis [facility] [address] [place] [address] 08/14/2024 Judd Sharif History of adenomato us polyp of colon Z86.010 ; Encounter for screening for malignant neoplasm of colon Z12.11 and Pre-procedural examination Z01.818 [facility] [address] [place] [address] 08/13/2024 Judd Sharif Assessments Encounter Date Diagnosis [...] Name:Judd Sharif , 11/26/2024 08:30:00 AM, [address] [facility] , [place], [place], [phone], Insurance Providers Payer Name Payer Address Payer Phone Subscriber Number Group Number Insured Name Patient Relationship to Insured Coverage Start Date Coverage End Date MEDICARE OF [place] [address] [place] [address] [id number] JOHANNE COBOS Self - patient is the insured 6 [employer] ATTN CLAIMS [address] [place] [address] [id number] JOHANNE COBOS Self - patient is the insured Medical (General) History Medical History History ICD Code Tubular adenomas removed in September 2004 and May of 2008; neg colonoscopy in 01/2014 Hypertension Hyperlipidemia Denies VA, DM, CVA, Lung disease, renal disease Screening colonoscopy in May 9 with removal of a tubular adenoma Surgical History Surgery Date(Month/Year) total hysterectomy 07/1997 left ovary removed 1979 or 1980 wisdom teeth extraction appendix
== END 2024-11-24 13:42 | disposition home or self-care (01) ==
PROVIDERS: PCP Internal Medicine; Visit Provider Physician Assistant
DX: S70.261A Insect bite (nonvenomous), right hip, initial encounter (principal); W57.XXXA Bitten or stung by nonvenomous insect and other nonvenomous arthropods, initial encounter

== ENCOUNTER → 2024-11-24 12:42 | Outpatient (BNVA) | payer MEDICARE, SELFPAY | PROVIDERS: PCP Internal Medicine; Visit Provider Physician Assistant | DX: S70.261A Insect bite (nonvenomous), right hip, initial encounter (principal); W57.XXXA Bitten or stung by nonvenomous insect and other nonvenomous arthropods, initial encounter | CPT/HCPCS: 99212 ==

== ENCOUNTER 2024-11-26 07:18 | Day surgery (SDC) | payer MEDICARE, SELFPAY ==
--- OUTSIDE RECORDS SUMMARY | 2024-10-20 10:44 | XMS_ITS | Patient Health Record ---
Author Organization [facility] Address [address] [place] [address] Care Team Providers Care Management Psychologist Name Role Phone Lonnie Mesa MD Primary Care Provider Judd Fernandez Unavailable [phone] Allergies No Known Allergies Reason For Referral [...] Problem Status W/U Status Risk Notes Problem [id number] Encounter for screening for malignant neoplasm of colon (Z12.11) Active confirmed Problem 641648647 History of adenomatous polyp of colon (Z86.010) Active confirmed Problem [id number] Pre-procedural examination (Z01.818) Active confirmed Vital Signs Blood pressure diastolic 00 mm Hg 08/14/2024 Height 65.5 in 08/14/2024 Blood pressure systolic 00 mm Hg 08/14/2024 Weight 153 lbs 08/14/2024 BMI 25.07 kg/m2 08/14/2024 Encounters Encounter Location Date Provider Diagnosis [facility] [address] [place] [address] 08/14/2024 Judd Sharif History of adenomato us polyp of colon Z86.010 ; Encounter for screening for malignant neoplasm of colon Z12.11 and Pre-procedural examination Z01.818 [facility] [address] [place] [address] 08/13/2024 Judd Sharif Assessments Encounter Date Diagnosis [...] Name:Judd Sharif , 11/26/2024 08:30:00 AM, [address] [facility] , [place], [place], [phone], Insurance Providers Payer Name Payer Address Payer Phone Subscriber Number Group Number Insured Name Patient Relationship to Insured Coverage Start Date Coverage End Date MEDICARE OF [place] [address] [place] [address] [id number] JOHANNE COBOS Self - patient is the insured 6 MEDEX ATTN CLAIMS [address] [place] [address] [id number] JOHANNE COBOS Self - patient is the insured Medical (General) History Medical History History ICD Code Tubular adenomas removed in September 2004 and May of 2008; neg colonoscopy in 01/2014 Hypertension Hyperlipidemia Denies [place], DM, CVA, Lung disease, renal disease Screening colonoscopy in May 9 with removal of a tubular adenoma Surgical History Surgery Date(Month/Year) total hysterectomy 07/1997 left ovary removed 1979 or 1980 wisdom teeth extraction appendix
--- OUTSIDE RECORDS SUMMARY | 2024-10-20 10:45 | XMS_ITS ---
Author Organization [facility] Address [address] [place] [address] Care Team Providers Care Digital Solution Architect Name Role Phone Lonnie Mesa MD Primary Care Provider Judd Fernandez [phone] REASON FOR VISIT Update Demographics - Personal Info Encounters Encounter Location Date Provider Diagnosis [facility] [address] [place] [address] 08/13/2024 Judd Sharif Plan Of Treatment Next Appt Details Provider Name:Judd Sharif , 11/26/2024 08:30:00 AM, [address] [place] [address] , [place], [place], [phone], Progress Notes * JOHANNE COBOS SDOB:1949 (74 yo F)Acc No.[id number]:08/13/2024 Patient:?JOHANNE COBOS :1950???Age:74 Y???Sex:Female Address:[address] [place] [address] * true * Date:? Generated for Printi ng/Fajerman/eTransmitting on:?10/20/2024 10:44 AM EDT
[2024-11-24 08:36] VITALS: BMI 25.1
--- NOTE | 2024-11-25 09:28 | HO.ANESPROP2 ---
Documented by User: Laura Ronquillo NP 11/25/24 09:28 HPI - Anesthesia Eval Consult details Narrative: 74yo F for Colonoscopy [facility] Active Problems Active Problems: All Active Problems Tick bite (Acute) Past Medical History Medical History (Updated 11/24/24 @ 13:39 by Katerina Strauss PA-C) HTN (hypertension) Hyperlipidemia Surgical History Surgical History (Updated 11/24/24 @ 08:26 by Lupe Urena RN) H/O colonoscopy H/O wisdom tooth extraction Hx of appendectomy Hx of total hysterectomy Social History Social History (System 10/10/24 @ 13:05 by Katerina Childress) Patient Tobacco Use Status: Never used Tobacco Advance Directives: No Advance Directives Information Provided: Yes Meds Allergies Allergy/AdvReac Type Severity Reaction Status Date / Time No Known Allergies Allergy Verified 11/24/24 13:10 Home Medications ?Medication ?Instructions ?Recorded ?Confirmed ?Last Taken ?Type atenolol 50 mg tablet 50 mg PO DAILY 11/24/24 11/26/24 11/26/24 06:30 History calcium 600 mg (as 1 tab PO DAILY 11/24/24 11/24/24 Unknown History carbonate)-vitamin D3 5 mcg (200 unit) tablet irbesartan 150 1 tab PO DAILY 11/24/24 11/24/24 Unknown History mg-hydrochlorothiazide 12.5 mg tablet (Avalide) multivitamin 1 tab PO DAILY 11/24/24 11/24/24 Unknown History simvastatin 10 mg tablet 10 mg PO BEDTIME 11/24/24 11/24/24 Unknown History Exam Height,Weight and Vital Signs: Height 5 ft 5.5 in Weight 69.4 kg Assessment and Plan Assessment Anesthesia Assessment: Chart Reviewed Documented by User: Dung Murpyh MD 11/26/24 09:05 [facility] Past Medical History Medical History (Updated 11/24/24 @ 13:39 by Katerina Strauss PA-C) HTN (hypertension) Hyperlipidemia Family History Family history of problems with anesthesia: No Surgical History Surgical History (Updated 11/24/24 @ 08:26 by Lupe Urena RN) H/O colonoscopy H/O wisdom tooth extraction Hx of appendectomy Hx of total hysterectomy History of Problems with Anesthesia: No Social History Social History (System 10/10/24 @ 13:05 by Katerina Childress) Patient Tobacco Use Status: Never used Tobacco Advance Directives: No Advance Directives Information Provided: Yes Meds Allergies Allergy/AdvReac Type Severity Reaction Status Date / Time No Known Allergies Allergy Verified 11/24/24 13:10 Home Medications ?Medication ?Instructions ?Recorded ?Confirmed ?Last Taken ?Type atenolol 50 mg tablet 50 mg PO DAILY 11/24/24 11/26/24 11/26/24 06:30 History calcium 600 mg (as 1 tab PO DAILY 11/24/24 11/24/24 Unknown History carbonate)-vitamin D3 5 mcg (200 unit) tablet irbesartan 150 1 tab PO DAILY 11/24/24 11/24/24 Unknown History mg-hydrochlorothiazide 12.5 mg tablet (Avalide) multivitamin 1 tab PO DAILY 11/24/24 11/24/24 Unknown History simvastatin 10 mg tablet 10 mg PO BEDTIME 11/24/24 11/24/24 Unknown History Exam Airway Mallampati Class: II TM Dist: <=3cm Neck ROM: Full Loose/Missing/Broken Teeth: No Heart: ok Lungs: ok Assessment and Plan Assessment Anesthesia Assessment: Anesthesia Plan Discussed Final Anesthetic Review Family History of Problems with Anesthesia: No History of Problems with Anesthesia: No NPO: Yes ASA Class: II Final Preanesthetic Review: No Changes in Pt Med Stat, Meds/Allgs Chart Reviewed, Consent Obtained/Reviewed and Anes Risks/Benef Reviewed Patient Risk: Intermediate Procedure Risk: Low Anesthetic Plan Anesthetic Plan: MAC: and Agree w/ Assess. and Plan Disposition: Standard PACU
[2024-11-26 07:38] VITALS: BMI 24.8
[2024-11-26 07:59] VITALS: BP 171/82; PULSE 64; RESP 16; TEMP 36.4; O2SAT 99
[2024-11-26] MEDS: Lactated Ringers 1,000 ML 100 ML IVCONT (08:02)
[2024-11-26 09:37] VITALS: BP 130/60; PULSE 60; RESP 16; TEMP 36.4; O2SAT 97
--- NOTE | 2024-11-26 09:39 | PM.OP ---
Brief Operative Note Date of Service: 11/26/24 Pre-op diagnosis: Screening Post-op diagnosis: other (Polyps) Procedure: Colonoscopy to the cecum and TI with hot snare polypectomy x 3, and cold snare polypectomy at 15cm Surgeon: Judd Sharif MD Anesthesia: MAC Was an Tumble Tailstock Turret Lathe Operator used for this Procedure?: No Estimated blood loss (mL): 2.0 Pathology: other (A. Polyp on ICV B. Ascending colon polyp C. Transverse colon polyp D. Polyp at 15cm) Condition: stable Disposition: PACU
[2024-11-26 09:52] VITALS: BP 141/74; PULSE 55; RESP 18; TEMP 36.4; O2SAT 100
--- NOTE | 2024-11-26 11:02 | OP_ITS ---
DATE OF SERVICE: 11/26/2024 SURGEON: Judd Sharif MD INDICATIONS: The patient presents for evaluation of personal history of tubular adenoma of the colon and colorectal cancer screening. Full consent has been obtained from her for this, including risks of bleeding and perforation. PREOPERATIVE DIAGNOSIS: POSTOPERATIVE DIAGNOSIS: PROCEDURE PERFORMED: Colonoscopy to the cecum and terminal ileum with hot snare polypectomy x3 and cold snare polypectomy at 15 cm. ESTIMATED BLOOD LOSS: COMPLICATIONS: ANESTHESIA: Medication used, monitored anesthesia care. ASSISTANTS: SPECIMENS: PREOPERATIVE DIAGNOSES: Colorectal cancer screening and personal history of tubular adenoma of the colon. POSTOPERATIVE DIAGNOSES: Colorectal cancer screening and personal history of tubular adenoma of the colon, colon polyps, diverticulosis, and internal hemorrhoids. DESCRIPTION OF PROCEDURE: The patient was placed in the left lateral decubitus position. The digital rectal exam revealed no abnormalities. The Olympus video pediatric colonoscope was entered into the rectum and advanced easily to the cecum. Once in the cecum, I did identify normal-appearing cecal pouch with appendiceal orifice. The terminal ileum was cannulated and appeared normal. The scope was withdrawn back in the colon. The entire cecum appeared normal. The scope was slowly withdrawn assessing all mucosal surfaces carefully. Preparation was excellent. On the portion of the ileocecal valve closest to the ascending colon was a flat and slightly raised grossly adenomatous polyp measuring approximately 10 to 12 mm in length and 3 or 4 mm in diameter. This was removed in piecemeal fashion with hot snare polypectomy with small portions of it cauterized with the tip of the snare. Pieces were recovered by suction. The polypectomy site ultimately appeared to be free of any residual polyp, and there was no bleeding. In the ascending colon was an approximately 12 mm flat, but raised polyp, which was removed by hot snare polypectomy in piecemeal fashion. Pieces were recovered by suction. The polypectomy site appeared clean, without any sign of residual polyp nor bleeding. In the transverse colon was an approximately 8 to 10 mm polyp, which was removed by hot snare polypectomy recovered by suction. The polypectomy site appeared clean, without any sign of residual polyp nor bleeding. At 15 cm, was a flat, but raised approximately 3 or 4 mm polyp, which was removed by cold snare polypectomy and recovered by suction. The polypectomy site appeared clean, without any sign of residual polyp nor significant bleeding. I did not visualize any other polyps, colitis, nor angiodysplasia. There was a mild amount of relatively diffuse diverticulosis. In the rectum, scope was retroflexed visualizing internal hemorrhoids, but no other pathology. The rectal mucosa appeared normal. The scope was straightened and withdrawn from the patient. She tolerated the procedure well and was returned to the recovery area in stable condition. IMPRESSION: 1. Colon polyps. 2. Diverticulosis. 3. Internal hemorrhoids. PLAN: Given today's findings with flat and grossly adenomatous polyps, I would recommend a repeat colonoscopy in 3 years for further screening and surveillance. She was advised not to use any aspirin or NSAIDs for 1 week. She will otherwise see me on a p.r.n. basis. MD CHERYL Heath/LOIS / [id number]
== END 2024-11-26 10:28 | disposition home or self-care (01) ==
PROVIDERS: PCP Internal Medicine; Visit Provider Internal Medicine
PROC: 0DJD8ZZ Inspection of Lower Intestinal Tract, Via Natural or Artificial Opening Endoscopic (ICD-10-PCS; CPT 45378; principal; 2024-11-26 08:30)
DX: Z12.11 Encounter for screening for malignant neoplasm of colon (principal); Z86.0101 Personal history of adenomatous and serrated colon polyps; D12.0 Benign neoplasm of cecum; D12.2 Benign neoplasm of ascending colon; D12.7 Benign neoplasm of rectosigmoid junction; K63.5 Polyp of colon; K57.30 Diverticulosis of large intestine without perforation or abscess without bleeding; K64.8 Other hemorrhoids; I10 Essential (primary) hypertension; E78.5 Hyperlipidemia, unspecified; Z79.899 Other long term (current) drug therapy; Z98.890 Other specified postprocedural states
CPT/HCPCS: 45385; 88305; J2003; J2704; J3010

== ENCOUNTER 2025-01-08 09:37 | Outpatient (AMB) | payer MEDICARE, SELFPAY ==
--- OUTSIDE RECORDS SUMMARY | 2024-11-26 04:30 | XMS_ITS ---
Author Organization [facility] Address [address] [place] [address] Care Team Providers Care Janitor Caretaker Name Role Phone Lonnie Mesa MD Primary Care Provider Judd Fernandez [phone] REASON FOR VISIT screening,hx polyps Encounters Encounter Location Date Provider Diagnosis [facility] [address] [place], [place] [id number] 11/26/2024 Judd Sharif Colon cancer scree rhonda Z12.11 and Adenoma of colon D12.6 Assessments Encounter Date Diagnosis (ICD Code) Assessment Notes Treatment Notes Treatment Clinical Notes Section Notes 11/26/2024 Colon cancer screening (ICD-10 - Z12.11) 11/26/2024 Adenoma of colon (ICD-10 - D12.6) Plan Of Treatment No Information Progress Notes * JOHANNE COBOS SDOB:1949 (74 yo F)Acc No.[id number]:11/26/2024 COLON WITH MAC Patient: Rebecca JOHANNE STOKSE Provider: Estevan Sharif MD :1950 A ge:74 Y S ex:Female Date:11/26/2024 Address:[address] [place] Pcp:Lonnie Mesa MD Subjective: * Chief Complaints: * 1 . Screening,hx polyps. * Medical History: Objective: * Vitals: Assessment: * Assessment: 1. C olon cancer screening - Z12.11 (Primary) 2 . A denoma of colon - D12.6? Plan: * Treatment: * Procedure Codes: 4 5385 LESION REMOVAL COLONOSCOPY, Modifiers: PT , 0529F INTRVL 3+YRS PTS CLNSCP DOCD, 0528F RCMND FLW-UP 10 YRS DOCD, Modifiers: 1P * * The named appointment provid er may or may not be the originator of this progress note, and it is not deemed complete until electronically signed by the appointment provider. Sign off status: Pending * Provider: Estevan Sharif MD Date: 0 11/26/2024 Generated for Adan reyes/Florence/Andreitting on: 0 01/08/2025 10:42 AM EDT
[2025-01-08 08:55] VITALS: BP 130/74; PULSE 67; TEMP 36.4; O2SAT 99; BMI 24.9
--- NOTE | 2025-01-08 08:55 | A.OFFPC_ITS ---
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 Accompanied by: Self / Same As Patient Allergies No Known Allergies Allergy (Verified 01/08/25 08:56) Tobacco use date assessed: 01/08/25 Fall risk assessment: No Falls in past year Last assessed Fall Risk: 01/08/25 Dental Screening Dental Screen Date: 01/08/25 Did you have a dental visit in the last 12 months?: Yes Did you have a dental problem in the last 6 months where you did not have access to dental care?: No HPI HPI Comments History of Present Illness Details The patient is a 74 year old female with a past medical history of hypertension, hyperlipidemia presenting for follow up CV: on atenolol, irbesartan hctz, simvastatin . BP 137/74. Denies chest pain, exertional dyspnea. Mammo 09/18/2024 DXA 2023. Colonoscopy 11/2023-[address] Sharif She will obtain imm record from [facility] ROS CONSTITUTIONAL: Denies weight loss, fever and chills. HEENT: Denies changes in vision and hearing. RESPIRATORY: Denies SOB and cough. CV: Denies palpitations and CP GI: Denies abdominal pain, nausea, vomiting and diarrhea. : Denies dysuria and urinary frequency. MSK: Denies new myalgia and joint pain. SKIN: Denies rash and pruritus. NEUROLOGICAL: Denies headache PSYCHIATRIC: Denies recent changes in mood. PHYSICAL EXAM: GENERAL: Alert and oriented x 3. NAD EYES: EOMI. Anicteric. HENT: Moist mucous membranes. No scleral icterus. No cervical lymphadenopathy. LUNGS: Clear to auscultation bilaterally. CARDIOVASCULAR: Regular rate and rhythm. No murmur. No JVD. ABDOMEN: Soft, non-tender +bs EXTREMITIES: No edema. Non-tender. SKIN: No rashes or lesions. Warm. NEUROLOGIC: No focal neurological deficits. CN II-XII grossly intact PSYCHIATRIC: Cooperative. Appropriate mood and affect [facility] Medical History HTN (hypertension) Hyperlipidemia Surgical History H/O colonoscopy H/O wisdom tooth extraction Hx of appendectomy Hx of total hysterectomy Family History Mother No problems noted. Father No problems noted. Social History Housing: House Patient Tobacco Use Status: Never used Tobacco e-Cigarette/Vaping Use: Never Used service: No Current occupational status: retired Cognitive needs: No Hearing needs: No Vision needs: No Questionnaire PHQ-9 Over the last 2 weeks, how often have you been bothered by any of the following problems? 1. Little interest or pleasure in doing things: not at all 2. Feeling down, depressed, or hopeless: not at all 3. Trouble falling or staying asleep, or sleeping too much: not at all 4. Feeling tired or having little energy: not at all 5. Poor appetite or overeating: not at all 6. Feeling bad about yourself - or that you are a failure or have let yourself or your family down: not at all 7. Trouble concentrating on things, such as reading the newspaper or watching television: not at all 8. Moving or speaking so slowly that other people could have noticed. Or the opposite - being so fidgety or restless that you have been moving around a lot more than usual: not at all 9. Thoughts that you would be better off or of hurting yourself in some way: not at all Total score: 0 Depression Screening Interpretation: Negative Depression Screening Done: Yes 23614 - PHQ-9 Billing: Yes Source: Developed by Drs. Judd Thurman, Kerline Hummel, Matthew Miller and colleagues, with an educational lisa from [employer]. Thrive Questionnaire Date Thrive assessed: 01/08/25 I am a: Patient Within the past 12 months, did the food you bought not last and you didn't have the money to get more?: Never true Within the past 12 months, did you worry whether your food would run out before you got money to buy more?: Never true Do you have trouble paying for medicines?: No Do you have trouble getting transportation to medical appointments?: No Do you have trouble paying your heating and electricity bill?: No Do you have trouble taking care of your child, family member or friend?: No Do you have trouble with day-to-day activities such as bathing, preparing meals, shopping, managing finances, etc.?: No Are you currently unemployed and looking for a job?: No Are you interested in more education?: No THRIVE Score: 0 AUDIT C Alcohol Use Questionnaire (AUDIT-C) 1. How often do you have a drink containing alcohol?: Monthly or less 2. How many drinks containing alcohol do you have on a typical day when you are drinking?: 1 or 2 3. How often do you have six or more drinks on one occasion?: Less than monthly Total Score: 2 JOSE-7 AMB Questionnaire JOSE-7 Date JOSE - 7 assessed: 01/08/25 Feeling nervous, anxious, or on edge: 0 = Not at all Not being able to stop or control worryin = Not at all Worrying too much about different things: 0 = Not at all Trouble relaxin = Not at all Being so restless that it is hard to sit still: 0 = Not at all Becoming easily annoyed or irritable: 0 = Not at all Feeling afraid as if something awful might happen: 0 = Not at all Total JOSE-7 score (0-4 normal; 5-9 mild; 10-14 moderate; 15-21 severe): 0 Source: Developed by Drs. Judd Thurman, Kerline Hummel, Matthew Miller and colleagues, with an educational lisa from [employer]. Physical exam (Primary Care) Vital Signs: Last Vital Signs Temp 97.5 F 01/08/25 08:55 Pulse 67 01/08/25 08:55 BP 130/74 01/08/25 08:55 Pulse Ox 99 01/08/25 08:55 Oxygen Delivery Method Room Air 01/08/25 08:55 BMI result Body Mass Index 24.9 Tobacco/Smoking Status: Tobacco use Status Tobacco use date assessed 01/08/25 01/08/25 08:57 Patient Tobacco Use Status Never used Tobacco 01/08/25 08:57 e-Cigarette/Vaping Use Never Used 01/08/25 08:57 PHQ-9: PHQ-9 Score PHQ-9: Total score 0 01/08/25 09:49 Depression Screening Interpretation: Negative Thrive Assessment: Date of Thrive Assessment Date Thrive assessed 01/08/25 01/08/25 08:57 Coding Level of Care Code New Pt Level 4 (03643) Complex EM visit Add On G2211 Diagnoses Primary hypertension I10 Hypertension type: primary hypertension Hyperlipidemia, unspecified hyperlipidemia type E78.5 Hyperlipidemia type: unspecified Tick bite of right hip, initial encounter S70.261A; W57.XXXA Encounter type: initial encounter Site of tick bite: hip Laterality: right Additional Codes PHQ-9 - 74388 - PHQ-9 Billing: Yes ([id number]) Assessment & Plan Assessment & Plan (1) HTN (hypertension): Code(s): I10 - Essential (primary) hypertension Category: Medical Qualifiers: Hypertension type: primary hypertension Qualified Code(s): I10 - Essential (primary) hypertension (2) Hyperlipidemia: Code(s): E78.5 - Hyperlipidemia, unspecified Category: Medical Qualifiers: Hyperlipidemia type: unspecified Qualified Code(s): E78.5 - Hyperlipidemia, unspecified (3) Tick bite: Code(s): W57.XXXA - Bitten or stung by nonvenomous insect and other nonvenomous arthropods, initial encounter Category: Medical Qualifiers: Encounter type: initial encounter Site of tick bite: hip Laterality: right Qualified Code(s): S70.261A - Insect bite (nonvenomous), right hip, initial encounter; W57.XXXA - Bitten or stung by nonvenomous insect and other nonvenomous arthropods, initial encounter Plan 74 year old to establish care Past medical, surgical, social reviewed CV: blood pressure and cholesterol are controlled on current medications. update labs Preventive measures utd Orders: Orders Complete Blood Count Auto Diff Today E78.5 - Hyperlipidemia, unspecified, I10 - Essential (primary) hypertension, R79.89 - Other specified abnormal findings of blood chemistry, S70.261A - Insect bite (nonvenomous), right hip, initial encounter, W57.XXXA - Bitten or stung by nonvenomous insect and other nonvenomous arthropods, initial encounter, Z13.228 - Encounter for screening for other metabolic disorders Comprehensive Met. Panel Today E78.5 - Hyperlipidemia, unspecified, I10 - Essential (primary) hypertension, R79.89 - Other specified abnormal findings of blood chemistry, S70.261A - Insect bite (nonvenomous), right hip, initial encounter, W57.XXXA - Bitten or stung by nonvenomous insect and other nonvenomous arthropods, initial encounter, Z13.228 - Encounter for screening for other metabolic disorders Vitamin B12 and Folate Today E78.5 - Hyperlipidemia, unspecified, I10 - Essen tial (primary) hypertension, R79.89 - Other specified abnormal findings of blood chemistry, S70.261A - Insect bite (nonvenomous), right hip, initial encounter, W57.XXXA - Bitten or stung by nonvenomous insect and other nonvenomous arthropods, initial encounter, Z13.228 - Encounter for screening for other metabolic disorders TSH reflex Free T4 Today E78.5 - Hyperlipidemia, unspecified, I10 - Essential (primary) hypertension, R79.89 - Other specified abnormal findings of blood chemistry, S70.261A - Insect bite (nonvenomous), right hip, initial encounter, W57.XXXA - Bitten or stung by nonvenomous insect and other nonvenomous arthropods, initial encounter, Z13.228 - Encounter for screening for other metabolic disorders Vitamin D 25-OH (D2 and D3) Today E78.5 - Hyperlipidemia, unspecified, I10 - Essential (primary) hypertension, R79.89 - Other specified abnormal findings of blood chemistry, S70.261A - Insect bite (nonvenomous), right hip, initial encounter, W57.XXXA - Bitten or stung by nonvenomous insect and other nonvenomous arthropods, initial encounter, Z13.228 - Encounter for screening for other metabolic disorders LDL Cholesterol Direct Today E78.5 - Hyperlipidemia, unspecified, I10 - Essential (primary) hypertension, R79.89 - Other specified abnormal findings of blood chemistry, S70.261A - Insect bite (nonvenomous), right hip, initial encounter, W57.XXXA - Bitten or stung by nonvenomous insect and other nonvenomous arthropods, initial encounter, Z13.228 - Encounter for screening for other metabolic disorders Lyme IgG/IgM w/reflex to WB Today E78.5 - Hyperlipidemia, unspecified, I10 - Essential (primary) hypertension, R79.89 - Other specified abnormal findings of blood chemistry, S70.261A - Insect bite (nonvenomous), right hip, initial encounter, W57.XXXA - Bitten or stung by nonvenomous insect and other nonvenomous arthropods, initial encounter, Z13.228 - Encounter for screening for other metabolic disorders Medications: New atenolol 50 mg PO DAILY 90 tabs 3RF irbesartan-hydrochlorothiazide 150-12.5 mg (Avalide) 1 tab PO DAILY 90 tabs 3RF simvastatin 10 mg PO BEDTIME 90 tabs 3RF
== END 2025-01-08 10:01 | disposition home or self-care (01) ==
LOC: HO.HMCHD 09:38
PROVIDERS: PCP Internal Medicine; Visit Provider Internal Medicine
DX: I10 Essential (primary) hypertension (principal); E78.5 Hyperlipidemia, unspecified; S70.261A Insect bite (nonvenomous), right hip, initial encounter; W57.XXXA Bitten or stung by nonvenomous insect and other nonvenomous arthropods, initial encounter

== ENCOUNTER → 2025-01-08 09:37 | Outpatient (BNVA) | payer MEDICARE, SELFPAY | PROVIDERS: PCP Internal Medicine; Visit Provider Internal Medicine | DX: I10 Essential (primary) hypertension (principal); E78.5 Hyperlipidemia, unspecified; S70.261A Insect bite (nonvenomous), right hip, initial encounter; Z79.899 Other long term (current) drug therapy; W57.XXXA Bitten or stung by nonvenomous insect and other nonvenomous arthropods, initial encounter; Y93.9 Activity, unspecified; Y92.9 Unspecified place or not applicable; Y99.9 Unspecified external cause status; Z13.31 Encounter for screening for depression; Z13.30 Encounter for screening examination for mental health and behavioral disorders, unspecified | CPT/HCPCS: 96127; 99202 ==

== ENCOUNTER 2025-01-08 10:04 | Outpatient (REF) | payer MEDICARE, SELFPAY ==
[2025-01-08 13:11] LABS: MANUAL DIFF FLAG NO
[2025-01-08 13:20] LABS: Basophils Absolute Auto 0.1 X10*3/uL (0.0-0.2); Basophils Percent Auto 0.9 % (0-2); Eosinophils Absolute Auto 0.1 X10*3/uL (0.0-0.4); Hematocrit 35.7 % (37.0-47.0); Hemoglobin 12.2 g/dl (12.0-16.0); Imm Gran Abs Auto 0.02 X10*3/uL (0.00-0.03); Imm Gran Pct Auto 0.4 % (0.0-0.4); Lymphocytes Percent Auto 35.4 % (20-40); Mean Corpuscular HGB Conc 34.2 g/dl (31.0-35.0); Mean Corpuscular Hemoglobin 32.2 pg (27.0-33.0); Mean Corpuscular Volume 94.2 fL (80.0-98.0); Mean Platelet Volume 9.2 fL (9.4-12.3); Monocytes Absolute Auto 0.5 X10*3/uL (0.1-1.2); Monocytes Percent Auto 9.1 % (2-11); Neutrophils Absolute Auto 2.9 x10*3/uL (2.0-8.3); Neutrophils Percent Auto 52.2 % (45-73); Platelet Count 251 X10*3/uL (160-400); Red Blood Count 3.79 X10*6/uL (4.20-5.50); Red Cell Distribution Width 11.9 % (11.0-16.0); White Blood Count 5.6 X10*3/uL (4.8-10.8)
[2025-01-08 13:36] LABS: Alanine Aminotransferase 21 U/L (0-31); Alkaline Phosphatase 57 U/L (39-117); Anion Gap 13 (12-20); Aspartate Amino Transferase 32 U/L (5-31); Bilirubin Total 0.5 mg/dL (0.0-1.0); Blood Urea Nitrogen 9 mg/dL (9-16); Calcium 9.6 mg/dL (8.4-10.2); Carbon Dioxide 28 mmol/L (22-29); Chloride 94 mmol/L (96-108); Estimated Glomerular Filt Rate > 60; Glucose Random 99 mg/dL (60-115); Potassium 3.9 mmol/L (3.3-5.1); Sodium 131 mmol/L (135-145); Total Protein 7.2 g/dL (6.5-8.0)
[2025-01-08 13:54] LABS: TSH reflex Free T4 0.57 uIU/mL (0.32-4.0)
[2025-01-08 14:06] LABS: Folate 17.8 ng/mL (> or = 4.0); Vitamin B12 235 pg/mL (200-900)
[2025-01-09 10:53] LABS: LDL Cholesterol Direct 109 mg/dL (<100)
[2025-01-09 12:03] LABS: Lyme Abs Screen <0.90 index
[2025-01-12 16:03] LABS: Vitamin D 25-OH, D2 <4 ng/mL; Vitamin D 25-OH, D3 44 ng/mL; Vitamin D 25-OH, Total 44 ng/mL (30-100)
== END 2025-01-08 10:05 | disposition home or self-care (01) ==
LOC: HO.10HDL 10:04
PROVIDERS: Visit Provider Internal Medicine
DX: S70.261A Insect bite (nonvenomous), right hip, initial encounter (principal); W57.XXXA Bitten or stung by nonvenomous insect and other nonvenomous arthropods, initial encounter; R79.89 Other specified abnormal findings of blood chemistry; Z13.228 Encounter for screening for other metabolic disorders; I10 Essential (primary) hypertension; E78.5 Hyperlipidemia, unspecified
CPT/HCPCS: 36415; 80053; 82306; 82607; 82746; 83721; 84443; 85025; 86617; 86618

== ENCOUNTER 2025-07-02 09:16 | Outpatient (AMB) | payer MEDICARE, SELFPAY ==
--- OUTSIDE RECORDS SUMMARY | 2024-11-26 03:30 | XMS_ITS ---
Author Organization [facility] Address [address] [place] [address] Care Team Providers Care Seat Maker Name Role Phone Moshe (RETIRED) Lonnie TEE Primary Care Provide Judd Thorpe [phone] REASON FOR VISIT screening,hx polyps Encounters Encounter Location Date Provider Diagnosis [facility] [address] [place], [place] [id number] 11/26/2024 Judd Sharif Colon cancer scree rhonda Z12.11 and Adenoma of colon D12.6 Assessments Encounter Date Diagnosis (ICD Code) Assessment Notes Treatment Notes Treatment Clinical Notes Section Notes 11/26/2024 Colon cancer screening (ICD-10 - Z12.11) 11/26/2024 Adenoma of colon (ICD-10 - D12.6) Plan Of Treatment No Information Progress Notes * JOHANNE COBOS SDOB:1949 (75 yo F)Acc No.[id number]:11/26/2024 COLON WITH MAC Patient: Rebecca KIKE JOHANNE Jesusita Provider: Estevan Sharif MD :1950 A ge:74 Y S ex:Female Date:11/26/2024 Address:[address] [place] Pcp:Lonnie Mesa (RETIRED )MD Subjective: * Chief Complaints: * S creening,hx polyps Assessment: * Assessment: 1. C olon cancer screening - Z12.11 (Primary) 2 . A denoma of colon - D12.6? Plan: * Procedure Codes: 4 5385 LESION REMOVAL COLONOSCOPY, Modifiers: PT 0529F INTRVL 3+YRS PTS CLNSCP [id number] RCMND FLW-UP 10 YRS DOCD, Modifiers: 1P Billing Information: * Procedure Codes: 44628 LESION REMOVAL COLONOSCOPY. Modifiers: PT 0529F INTRVL 3+YRS PTS CLNSCP DOCD. 0528F RCMND FLW-UP 10 YRS DOCD. Modifiers: 1P * The named appointment provid er may or may not be the originator of this progress note, and it is not deemed complete until electronically signed by the appointment provider. Sign off status: Pending * Provider: Estevan Sharif MD Date: 0 11/26/2024 Generated for Adan reyes/Florence/Andreitting on: 1 09/02/2024 10:35 AM EST
--- NOTE | 2025-07-02 09:22 | A.OFFPC_ITS ---
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 Accompanied by: Self / Same As Patient Allergies No Known Allergies Allergy (Verified 07/02/25 09:23) Medication List - Last Reconciled 07/02/25 by Lupe Shultz MD ascorbate calcium (vitamin C) 500 mg PO DAILY atenolol 50 mg PO DAILY calcium carbonate-vitamin D3 600 mg-5 mcg (200 unit) 1 tab PO DAILY irbesartan-hydrochlorothiazide 150-12.5 mg (Avalide) 1 tab PO DAILY multivitamin 1 tab PO DAILY simvastatin 10 mg PO BEDTIME Tobacco use date assessed: 01/08/25 Fall risk assessment: No Falls in past year Last assessed Fall Risk: 07/02/25 Dental Screening Dental Screen Date: 01/08/25 HPI HPI Comments History of Present Illness Details The patient is a 75 year old female presenting to critical access hospital care and for management of chronic conditions. Former patient of Dr. Mesa. Hypertension: The patient has a long-standing history of hypertension, which has been one of her main medical issues for many years. She has been taking atenolol 50 mg and an irbesartan-hydrochlorothiazide combination pill for many years. Previous la bs showed borderline low sodium, which may be related to the hydrochlorothiazide component of her medication. Hyperlipidemia: The patient has a history of high cholesterol and takes simvastatin 10 mg at bedtime. History of colon polyps: The patient has a history of polyps and sees Dr. Sharif for colonoscopies. Her colonoscopy frequency has been changed from every five years to every three years. Osteoporosis: The patient has a history of osteoporosis and takes calcium and vitamin D supplements. She has no history of taking medications such as Fosamax or Boniva. Her last bone density scan was in September 2023, and she is due for a recheck in September 2025. [facility] Medical History (Updated 07/02/25 @ 09:52 by Lupe Shultz MD) Iron deficiency anemia Tubular adenoma HTN (hypertension) Hyperlipidemia Surgical History (Updated 07/02/25 @ 07:58 by Lupe Shultz MD) History of left oophorectomy H/O colonoscopy (~11/26/24) H/O wisdom tooth extraction Hx of appendectomy Hx of total hysterectomy Family History (Updated 07/02/25 @ 09:34 by Lupe Shultz MD) Mother Leukemia Father No problems noted. Social History Housing: House Patient Tobacco Use Status: Never used Tobacco e-Cigarette/Vaping Use: Never Used service: No Current occupational status: retired Cognitive needs: No Hearing needs: No Vision needs: No Questionnaire PHQ-9 Over the last 2 weeks, how often have you been bothered by any of the following problems? 1. Little interest or pleasure in doing things: not at all 2. Feeling down, depressed, or hopeless: not at all 3. Trouble falling or staying asleep, or sleeping too much: not at all 4. Feeling tired or having little energy: not at all 5. Poor appetite or overeating: not at all 6. Feeling bad about yourself - or that you are a failure or have let yourself or your family down: not at all 7. Trouble concentrating on things, such as reading the newspaper or watching television: not at all 8. Moving or speaking so slowly that other people could have noticed. Or the opposite - being so fidgety or restless that you have been moving around a lot more than usual: not at all 9. Thoughts that you would be better off or of hurting yourself in some way: not at all Total score: 0 Source: Developed by Drs. Judd Thurman, Kerline Hummel, Matthew Miller and colleagues, with an educational lisa from [employer]. Thrive Questionnaire Date Thrive assessed: 01/08/25 AUDIT C Alcohol Use Questionnaire (AUDIT-C) 1. How often do you have a drink containing alcohol?: 4 or more times a week 2. How many drinks containing alcohol do you have on a typical day when you are drinking?: 1 or 2 3. How often do you have six or more drinks on one occasion?: Never Total Score: 4 JOSE-7 AMB Questionnaire JOSE-7 Date JOSE - 7 assessed: 01/08/25 Source: Developed by Drs. Judd Thurman, Kerline Hummel, Matthew Miller and colleagues, with an educational lisa from [employer]. Review of Systems Narrative Review of Systems - Respiratory: Denies breathing problems. - Cardiovascular: Denies chest pain or shortness of breath on exertion. - Abdominal: Denies pain on palpation. Physical exam (Primary Care) Vital Signs: Last Vital Signs Temp 96.9 F 07/02/25 09:24 Pulse 71 07/02/25 09:24 Resp 16 07/02/25 09:24 BP 130/84 07/02/25 09:24 Pulse Ox 97 07/02/25 09:24 Oxygen Delivery Method Room Air 07/02/25 09:24 BMI result Body Mass Index 25.7 Tobacco/Smoking Status: Tobacco use Status Tobacco use date assessed 01/08/25 07/02/25 09:28 Patient Tobacco Use Status Never used Tobacco 07/02/25 09:28 e-Cigarette/Vaping Use Never Used 07/02/25 09:28 PHQ-9: PHQ-9 Score PHQ-9: Total score 0 07/02/25 09:28 Thrive Assessment: Date of Thrive Assessment Date Thrive assessed 01/08/25 07/02/25 09:28 Narrative Physical Exam - Cardiovascular: Regular rate and rhythm. A soft murmur was auscultated. Carotid arteries are free of bruits. - Pulmonary: Lungs are clear to auscultation bilaterally with no wheezing. - Abdomen: Soft and non-tender to palpation with normal bowel sounds. - Extremities: No bilateral leg swelling. Coding Level of Care Code Est Pt Level 4 (18268) Add On Problem Visit Only Diagnoses Primary hypertension I10 Hypertension type: primary hypertension Hyperlipidemia, unspecified hyperlipidemia type E78.5 Hyperlipidemia type: unspecified Hyponatremia E87.1 Assessment & Plan Assessment & Plan (1) HTN (hypertension): Code(s): I10 - Essential (primary) hypertension Category: Medical Qualifiers: Hypertension type: primary hypertension Qualified Code(s): I10 - Essential (primary) hypertension (2) Hyperlipidemia: Code(s): E78.5 - Hyperlipidemia, unspecified Category: Medical Qualifiers: Hyperlipidemia type: unspecified Qualified Code(s): E78.5 - Hyperlipidemia, unspecified (3) Hyponatremia: Code(s): E87.1 - Hypo-osmolality and hyponatremia Category: Medical Plan Assessment and Plan 1. Essential Hypertension (I10) - Well-controlled on atenolol and irbesartan-HCTZ. - Will monitor for medication side effects by checking electrolytes, including sodium, and kidney function due to prior borderline hyponatremia, likely related to HCTZ. - A urine microalbumin test will be ordered to assess for hypertensive effects on the kidneys. 2. Hyperlipidemia (E78.5) - Will continue simvastatin 10 mg at bedtime. - A full lipid panel will be checked at the 6-month wellness visit. 3. Osteoporosis (M81.0) - Stable. - Continue calcium and vitamin D supplements. - An order will be placed for a repeat bone density scan to be performed after September 2025. 4. Low-normal Vitamin B12 - Level was 235. - Recommended starting an ytex-oul-upmlebm vitamin B12 1000 mcg supplement daily. 5. Heart Murmur (R01.0) - A murmur was noted on exam. - The patient is asymptomatic. - Reviewed warning signs, including chest pain or shortness of breath with exertion, which would prompt further evaluation with an echocardiogram. 6. Anemia (D64.9) - History of minor anemia. - Will check CBC and iron studies with today's labs to re-evaluate. 7. Health Maintenance (Z00.00) - Discussed and coordinated preventative care. - The patient has a mammogram scheduled for September 24. - She is up to date with colonoscopy screenings. - Reviewed immunization status; the patient is UTD on influenza, COVID, and shingles. - Advised obtaining a Tdap vaccine. - Confirmed patient received Prevnar 20 previously. - The patient declines the RSV vaccine at this time due to low exposure risk. - Scheduled a 6-month follow-up wellness visit. Plan - Continue current medications including atenolol, irbesartan-HCTZ, simvastatin, multivitamin, and calcium/vitamin D. - Start wbsr-lhu-ffbojbu Vitamin B12 1000 mcg daily. - Labs ordered for today: CBC, iron studies, magnesium, sodium, potassium, calcium, and a thyroid panel. - Urine test ordered for today to check for microalbumin. - Place order for a routine bone density scan, due after September 2025. Patient Instructions - Continue taking your current medications for blood pressure and cholesterol: Atenolol 50 mg, the irbesartan/hydrochlorothiazide pill, and Simvastatin 10 mg. - Start taking an psik-qib-syagird Vitamin B12 supplement, 1000 mcg, once a day. - Continue taking your multivitamin and your calcium with vitamin D supplements. - Please go to the lab today to have blood drawn and provide a urine sample. Orders: Orders Magnesium Today E78.5 - Hyperlipidemia, unspecified, E87.1 - Hypo-osmolality and hyponatremia, I10 - Essential (primary) hypertension Comprehensive Met. Panel Today E78.5 - Hyperlipidemia, unspecified, E87.1 - Hypo-osmolality and hyponatremia, I10 - Essential (primary) hypertension Ferritin Today E78.5 - Hyperlipidemia, unspecified, E87.1 - Hypo-osmolality and hyponatremia, I10 - Essential (primary) hypertension TSH reflex Free T4 Today E78.5 - Hyperlipidemia, unspecified, E87.1 - Hypo- osmolality and hyponatremia, I10 - Essential (primary) hypertension Osmolality, Serum Today E87.1 - Hypo-osmolality and hyponatremia IRON PROFILE Today E78.5 - Hyperlipidemia, unspecified, E87.1 - Hypo-osmolality and hyponatremia, I10 - Essential (primary) hypertension Microalbumin, Random (w Creat) Today I10 - Essential (primary) hypertension Osmolality Urine Today E87.1 - Hypo-osmolality and hyponatremia Sodium Urine Random Today E87.1 - Hypo-osmolality and hyponatremia Complete Blood Count Auto Diff Today D50.9 - Iron deficiency anemia, unspecified
[2025-07-02 09:24] VITALS: BP 130/84; PULSE 71; RESP 16; TEMP 36.1; O2SAT 97; BMI 25.7
--- OUTSIDE RECORDS SUMMARY | 2025-07-02 10:36 | XMS_ITS | Patient Health Record ---
Author Organization [facility] Address [address] [place] [address] Care Team Providers Care Spaghetti Press Helper Name Role Phone Moshe (RETIRED) Lonnie TEE Primary Care Provide r Unavailable SharifJudd Unavailable [phone] Allergies No Known Allergies Results Component Value Reference Range Notes Pathology (Not yet reviewed by provider) Interpretation: Performing Lab:[facility], [address] [place] [phone] Notes/Report: Reason For Referral No Information Medications Medication SIG (Take, Route, Frequency, Duration) Notes Start Date End Date Status Avalide 150-12.5 MG Tablet 1 tablet Oral ly Once a day Active Calcium 1 tab Oral; Duration : 14 days Active Multivitamin Adults - Tablet as directed Orally Active Simvastatin 10 MG Tablet 1 tablet in the evening Orally Once a day Active Atenolol 50 MG Tablet 1 tablet Orally On ce a day; Duration: 30 day(s) Active Immunizations Vaccine Route Administration Date Status Comme nts Influenza Unknown 03/16/2018 Administered Social History Social History Drugs/Alcohol: Social Info Question Answer Notes Drugs Have you used drugs other than those for medical reasons in the past 12 months? 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 Section Notes: Nonsmoker; 2 glasses of wine QD Nonsmoker; 2 glasses of wine QD Nonsmoker; 2 glasses of wine QD Problems Problem Type SNOMED Code ICD Code Onset Dates Problem Status W/U Status Risk Notes Problem Screening for malignant neoplasm of colon (509692483) Encounter for screening for malignant neoplasm of colon (Z12.11) Active confirmed Problem History of adenomatous polyp of colon (187997028) History of adenomatous polyp of colon (Z86.010) Active confirmed Problem Pre-procedure evaluation check (197838176) Pre-procedural examination (Z01.818) Active confirmed Vital Signs Blood pressure diastolic 00 mm Hg 08/14/2024 Height 65.5 in 08/14/2024 Blood pressure systolic 00 mm Hg 08/14/2024 Weight 153 lbs 08/14/2024 BMI 25.07 kg/m2 08/14/2024 Encounters Encounter Location Date Provider Diagnosis [facility] [place] Outpatient [address] [place] [phone] 11/26/2024 Judd Sharif Colon cancer screening Z12.11 and Adenoma of colon D12.6 [facility] [address] [facility] [address] [place] [id number] 08/14/2024 Judd Sharif History of adenomatous polyp of colon Z86.010 ; Encounter for screening for malignant neoplasm of colon Z12.11 and Pre-procedural examination Z01.818 [facility] [address] [place] [phone] 08/13/2024 Judd Sharif Assessments Encounter Date Diagnosis (ICD Code) Assessment Notes Treatment Notes Treatment Clinical Notes Section Notes 11/26/2024 Colon cancer screening (ICD-10 - Z12.11) 11/26/2024 Adenoma of colon (ICD-10 - D12.6) 08/14/2024 Encounter for screening for malignant neoplasm [...] advised of her progress. Plan Of Treatment Pending Test Test Name Order Date Pathology 11/26/2024 Future Test Test Name Order Date COLONOSCOPY 11/06/2013 COLONOSCOPY 04/15/2019 COLONOSCOPY 08/14/2024 Insurance Providers Payer Name Payer Address Payer Phone Subscriber Number Group Number Insured Name Patient Relationship to Insured Coverage Start Date Coverage End Date MEDICARE OF [place] [address] [place]AYJOS[place]HTrin[place] JIMENEZJENNIFER [id number] JOHANNE COBOS Self - patient is the insured 6 [employer] ATT[employer] CLAIMS [address] [place] [address] [id number] JOHANNE COBOS Self - patient is the insured Medical (General) History Medical History History ICD Code Tubular adenomas removed in September 2004 and May of 2008; neg colonoscopy in 01/2014 Hypertension Hyperlipidemia Denies [place], DM, CVA, Lung disease, renal disease Screening colonoscopy in May 9 with removal of a tubular adenoma Surgical History Surgery Date(Month/Year) total hysterectomy 07/1997 left ovary removed 1979 or 1980 wisdom teeth extraction appendix
== END 2025-07-02 10:02 | disposition home or self-care (01) ==
LOC: HO.HMCHD 09:17
PROVIDERS: PCP Internal Medicine; Visit Provider Internal Medicine
DX: I10 Essential (primary) hypertension (principal); E78.5 Hyperlipidemia, unspecified; E87.1 Hypo-osmolality and hyponatremia

== ENCOUNTER → 2025-07-02 09:16 | Outpatient (BNVA) | payer MEDICARE, SELFPAY | PROVIDERS: PCP Internal Medicine; Visit Provider Internal Medicine | DX: I10 Essential (primary) hypertension (principal) | CPT/HCPCS: 99212 ==

== ENCOUNTER 2025-07-02 10:22 | Outpatient (REF) | payer MEDICARE, SELFPAY ==
[2025-07-02 13:07] LABS: MANUAL DIFF FLAG NO
[2025-07-02 13:10] LABS: Hematocrit 36.5 % (37.0-47.0); Hemoglobin 12.7 g/dl (12.0-16.0); Imm Gran Abs Auto 0.01 X10*3/uL (0.00-0.03); Imm Gran Pct Auto 0.2 % (0.0-0.4); Lymphocytes Absolute Auto 1.9 X10*3/uL (1.2-4.9); Mean Corpuscular HGB Conc 34.8 g/dl (31.0-35.0); Mean Corpuscular Hemoglobin 32.6 pg (27.0-33.0); Mean Corpuscular Volume 93.8 fL (80.0-98.0); NRBC Abs Auto 0.000 X10*3/uL (0.0-0.012); NRBC Pct Auto 0.0 /100WBC (0.0-0.2); Platelet Count 254 X10*3/uL (160-400); Red Blood Count 3.89 X10*6/uL (4.20-5.50); White Blood Count 6.0 X10*3/uL (4.8-10.8)
[2025-07-02 13:47] LABS: Alanine Aminotransferase 22 U/L (0-31); Albumin Level 4.2 g/dL (3.5-5.0); Alkaline Phosphatase 69 U/L (39-117); Anion Gap 13 (12-20); Aspartate Amino Transferase 34 U/L (5-31); Blood Urea Nitrogen 12 mg/dL (9-16); Calcium 9.9 mg/dL (8.4-10.2); Carbon Dioxide 28 mmol/L (22-29); Chloride 95 mmol/L (96-108); Estimated Glomerular Filt Rate > 60; Iron 98 mcg/dL (30-160); Magnesium 1.7 mg/dL (1.6-2.6); Percent Iron Saturation 43 % (15-50); Potassium 4.5 mmol/L (3.3-5.1); Sodium 131 mmol/L (135-145); Total Iron Binding Capacity 230 mcg/dL (228-428); Total Protein 7.5 g/dL (6.5-8.0); Unsaturated Iron Binding 132 ug/dL
[2025-07-02 13:52] LABS: Osmolality, Serum 284 mosm/kg (281-305)
[2025-07-02 14:14] LABS: Ferritin 721 ng/mL (10-250)
== END 2025-07-02 10:23 ==
LOC: HO.10HDL 10:22
PROVIDERS: Visit Provider Internal Medicine
DX: I10 Essential (primary) hypertension (principal); E78.5 Hyperlipidemia, unspecified; E87.1 Hypo-osmolality and hyponatremia; D50.9 Iron deficiency anemia, unspecified
CPT/HCPCS: 36415; 80053; 82728; 83540; 83735; 83930; 84443; 85025